=== PATIENT | male | born 1975 | race Caucasian/White ===

== ENCOUNTER 2017-04-05 19:51 | Emergency (ER) | payer OTHER ==
[2017-04-05] MEDS ORDERED: ONDANSETRON 4 MG/2 ML VIAL IVP STA (21:24)
[2017-04-05] MEDS ORDERED: HYDROmorphone 1 MG/ML SYRINGE IVP STA (21:24)
--- NOTE | 2017-04-05 21:33 | ED Physician Documentation ---
PD HPI ABD PAIN - Stated complaint Stated Complaint: RT LOW BACK PX - Chief complaint Chief Complaint: Abd Pain - History obtained from History obtained from: Patient - History of Present Illness Timing - onset: How many days ago (2) Timing - duration: Days (2) Timing - details: Abrupt onset, Intermittant Pain level max: 9 Pain level now: 9 Quality: Aching, Pain Location: Other (R flank) Radiation: Other (R LQ) Improved by: Other (nothing) Worsened by: Other (nothing) Associated symptoms: Melena (x1 today), Hematochezia (x1 yesterday). No: Fever , Nausea, Vomiting, Hematemesis, Diarrhea, Constipation, Near syncope / syncope , Loss of appetite, Weight loss Recently seen: Not recently seen - Additional information Additional information: takes aspirin, meloxicam daily. Takes methotrexate weekly Review of Systems Ten Systems: 10 systems reviewed and negative Constitutional: denies: Fever, Chills Nose: denies: Rhinorrhea / runny nose, Congestion GI: denies: Vomiting, Hematemesis : denies: Dysuria, Frequency, Hesitancy, Testicular pain, Testicular mass Skin: denies: Rash Musculoskeletal: denies: Neck pain Neurologic: denies: Focal weakness, Numbness, Headache PD PAST MEDICAL HISTORY - Past Medical History Past Medical History: Yes Musculoskeletal: Chronic back pain Derm: Other - Present Medications Home Medications: Ambulatory Orders Medication Instructions Recorded Confirmed Aspirin Chewable [St Ray 04/05/17 Aspirin] Cyclobenzaprine [Flexeril] 10 mg PO TID PRN #20 tablet 04/05/17 Hydrocodone/Acetaminophen 1 - 2 each PO Q6H PRN #14 tablet 04/05/17 [Hydrocodon-Acetaminophen 5-325] Lisinopril 20 mg PO 04/05/17 Meloxicam 7.5 mg PO 04/05/17 Methotrexate 04/05/17 Omeprazole [PriLOSEC] 04/05/17 Omeprazole [PriLOSEC] 20 mg PO DAILY #30 capsule 04/05/17 Simvastatin [Zocor] 20 mg PO 04/05/17 traMADol [Ultram] 04/05/17 - Allergies Allergies/Adverse Reactions: Allergies Allergy/AdvReac Type Severity Reaction Status Date / Time amoxicillin Allergy Intermediate Hives Verified 04/05/17 20:05 - Living Situation Living Situation: reports: With family Living Arrangement: reports: At home - Social History Does the pt have substance abuse?: No - Family History Family history: reports: Non contributory PD ED PE NORMAL - Vitals Vital signs reviewed: Yes - General General: Alert and oriented X 3, No acute distress - HEENT HEENT: Moist mucous membranes - Neck Neck: Supple, no meningeal sign, No bony TTP - Cardiac Cardiac: RRR - Respiratory Respiratory: No respiratory distress, Clear bilaterally - Abdomen Abdomen: Soft, Non tender, Non distended - Back Back: No spinal TTP, Other (TTP R low lumbar paraspinal) - Derm Derm: Warm and dry - Neuro Neuro: Alert and oriented X 3 - Psych Psych: Normal mood, Normal affect Results - Vitals Vitals: Vital Signs - 24 hr 04/05/17 04/05/17 04/05/17 20:02 23:40 23:57 Temperature 36.7 C Heart Rate 48 L 53 L 78 Respiratory 18 16 18 Rate Blood Pressure 151/95 H 138/71 H 139/70 H O2 Saturation 97 100 100 Oxygen O2 Source Room air - Labs Labs: Laboratory Tests 04/05/17 04/05/17 04/05/17 21:49 21:49 23:35 WBC 8.2 RBC 4.68 L Hgb 15.0 Hct 43.8 MCV 93.6 MCH 32.1 H MCHC 34.3 RDW 14.0 Plt Count 259 MPV 7.5 Neut # 5.2 Lymph # 2.1 Hill # 0.7 Eos # 0.2 Baso # 0.1 Absolute Nucleated RBC 0.01 Nucleated RBCs 0.1 Sodium 139 Potassium 4.1 Chloride 108 Carbon Dioxide 21 Anion Gap 10.0 BUN 13 Creatinine 1.0 Estimated GFR (MDRD) 82 L Glucose 104 H Calcium 9.4 Total Bilirubin 0.3 AST 21 ALT 27 Alkaline Phosphatase 67 Total Protein 7.3 Albumin 4.5 Globulin 2.8 Albumin/Globulin Ratio 1.6 Lipase 28 Urine Color YELLOW Urine Clarity CLEAR Urine pH 6.0 Ur Specific [place] 1.010 Urine Protein NEGATIVE Urine Glucose (UA) NEGATIVE Urine Ketones NEGATIVE Urine Occult Blood NEGATIVE Urine Nitrite NEGATIVE Urine Bilirubin NEGATIVE Urine Urobilinogen 0.2 (NORMAL) Ur Leukocyte Esterase NEGATIVE Ur Microscopic Review NOT INDICATED Urine Culture Comments NOT INDICATED - Rads (name of study) CT abd/pelvis Radiology: Prelim report reviewed, EMP read contemporaneously, See rad report ( Negative abdomen and pelvis CT. ) PD MEDICAL DECISION MAKING - ED course Complexity details: reviewed results, re-evaluated patient, considered differential, d/w patient ED course: Patient is a 41-year-old male with right lower back pain. Unclear etiology. No acute findings on CT scan or urinalysis. No acute findings on laboratory testing. Rectal is normal and Hemoccult is negative. Will have him stop the aspirin and NSAID use to see if this resolves his GI bleeding. Pain well controlled here. Will trial on Flexeril and hydrocodone at home. Patient counseled regarding signs and symptoms for which I believe and urgent re- evaluation would be necessary. Patient with good understanding of and agreement to plan and is comfortable going home at this time This document was made in part using voice recognition software. While efforts are made to proofread this document, sound alike and grammatical errors may occur. Departure - Departure Disposition: Home, Self Care Clinical Impression: Back pain Qualifiers: Back pain location: low back pain Chronicity: acute Back pain laterality: right Sciatica presence: without sciatica Qualified Code(s): M54.5 - Low back pain GI bleed Qualifiers: GI bleed type/associated pathology: unspecified gastrointestinal hemorrhage type Qualified Code(s): K92.2 - Gastrointestinal hemorrhage, unspecified Condition: Good Instructions: ED Neck Back Pain General, ED Hematochezia Stable Follow-Up: AMBERLY LAM MD [Primary Care Provider] - Within 1 week Prescriptions: Cyclobenzaprine [Flexeril] 10 mg PO TID PRN #20 tablet PRN Reason: Spasms Hydrocodone/Acetaminophen [Hydrocodon-Acetaminophen 5-325] 1 - 2 each PO Q6H PRN #14 tablet PRN Reason: pain Omeprazole [PriLOSEC] 20 mg PO DAILY #30 capsule Comments: Stop the anti-inflammatory medications at home and aspirin. Return if you worsen. Do not take the flexeril with the tramadol. Do not drink alcohol or drive while on narcotic pain medicine. Note that many narcotic pain relievers also contain tylenol/acetaminophen. Please ensure that your total dose of acetaminophen from all sources does not exceed 3 grams (3000mg) per day. You may constipated on this medication, take a stool softener such as "Colace" twice a day while you are on it. Also recommend a dbit-[id number] laxative such as senna or MiraLAX any day that you do not have a bowel movement. If you received narcotic pain medication in the emergency department, do not drive or operate machinery for the next 24 hours. Discharge Date/Time: 04/05/17 23:59
[2017-04-05] MEDS ORDERED: ONDANSETRON 4 MG/2 ML VIAL ONE (21:43)
[2017-04-05] MEDS ORDERED: HYDROmorphone 1 MG/ML SYRINGE ONE (21:43)
[2017-04-05 21:59] LABS: BASOPHILS # (AUTO) 0.1 10^3/uL (0.0-0.1); EOSINOPHILS # (AUTO) 0.2 10^3/uL (0.0-0.7); HCT - HEMATOCRIT 43.8 % (42.0-52.0); LYMPHOCYTES # (AUTO) 2.1 10^3/uL (1.5-3.5); LYMPHOCYTES % (AUTO) 26.1 %; MEAN CORPUSCULAR HEMOGLOBIN 32.1 pg (27.0-31.0); MEAN CORPUSCULAR HGB CONC 34.3 g/dL (32.0-36.0); MEAN CORPUSCULAR VOLUME 93.6 fL (80.0-94.0); MEAN PLATELET VOLUME 7.5 fL (7.4-11.4); MONOCYTES # (AUTO) 0.7 10^3/uL (0.0-1.0); NEUTROPHILS # (AUTO) 5.2 10^3/uL (1.5-6.6); NEUTROPHILS % (AUTO) 62.9 %; NUCLEATED RED BLOOD CELLS AUTO 0.1 /100WBC; RED BLOOD COUNT 4.68 10^6/uL (4.70-6.10); UNCORRECTED WHITE BLOOD COUNT 8.2 x10^3/uL; WHITE BLOOD COUNT 8.2 x10^3/uL (4.8-10.8)
[2017-04-05 22:10] LABS: ALBUMIN/GLOBULIN RATIO 1.6 (1.0-2.2); BILIRUBIN,TOTAL 0.3 mg/dL (0.2-1.0); CALCIUM 9.4 mg/dL (8.5-10.3); POTASSIUM 4.1 mmol/L (3.5-5.0); TOTAL PROTEIN 7.3 g/dL (6.7-8.2)
[2017-04-05] MEDS ORDERED: IOPAMIDOL-300 100 ML VIAL IVP ONE (23:04)
--- NOTE | 2017-04-05 23:24 | CT Preliminary Report ---
Exam: CT Abdomen/Pelvis W/ IMPRESSION: Negative abdomen and pelvis CT. [facility] SITE ID: [id number]
--- NOTE | 2017-04-05 23:29 | CT Report ---
EXAM: CT ABDOMEN AND PELVIS EXAM DATE: 04/05/2017 11:09 PM. CLINICAL HISTORY: Abdominal pain on the right. COMPARISONS: None. TECHNIQUE: Routine helical CT imaging was performed through the abdomen and pelvis. IV contrast: 100 mL Isovue-300. Enteric contrast: No . Reconstructions: Coronal and sagittal. In accordance with CT protocol optimization, one or more of the following dose reduction techniques w ere utilized for this exam: automated exposure control, adjustment of mA and/or KV based on patient s ize, or use of iterative reconstructive technique. FINDINGS: Lung Bases: Unremarkable. Liver: Small left liver hypodense focus is statistically benign. No suspicious masses. Gallbladder/Bile Ducts: Unremarkable. Spleen: Unremarkable. Pancreas: Unremarkable. Adrenal Glands: Unremarkable. Kidneys: Unremarkable. No suspicious masses or hydronephrosis. Peritoneal Cavity/Bowel: No bowel obstruction or inflammatory process seen. No free air or significan t free fluid. No masses or adenopathy. The appendix is normal. No excessive stool burden. Pelvic Organs: Bladder and prostate appear unremarkable. Vasculature: No aneurysms or other significant abnormality. Bones: No significant abnormality. Other: None. IMPRESSION: Negative abdomen and pelvis CT. [facility] Referring Provider Line: [phone] SITE ID: [id number]
[2017-04-05 23:43] LABS: BILIRUBIN,URINE NEGATIVE (NEGATIVE)
[2017-04-05 23:45] LABS: UA CHARGE (STRIP ONLY) YES; UR CULTURE IF IND NOT INDICATED
[2017-04-05] MEDS ORDERED: HYDROcod/ACETAM 5/325 MG TABLET PO STA (23:52)
[2017-04-05] MEDS ORDERED: CYCLOBENZAPRINE 10 MG TABLET PO STA (23:52)
[2017-04-05] MEDS ORDERED: CYCLOBENZAPRINE 10 MG TABLET PO ONE (23:57)
[2017-04-05] MEDS ORDERED: HYDROcod/ACETAM 5/325 MG TABLET ONE (23:58)
[2017-04-05 23:59] VITALS: BP 139/70
== END 2017-04-05 23:59 | disposition home or self-care (01) ==
LOC: ED 19:51
DX: K92.2 Gastrointestinal hemorrhage, unspecified (principal); M54.5 Low back pain
CPT/HCPCS: 36415; 74177; 80053; 81003; 83690; 85025; 96374; 96375; 99283; A9270; J1170; Q9967; 81001; 87086

== ENCOUNTER 2017-05-06 08:59 | Day surgery (SDC) | payer OTHER ==
[2017-05-06] MEDS ORDERED: CELECOXIB 100 MG CAPSULE PO ONE (09:18)
[2017-05-06] MEDS ORDERED: ACETAMINOPHEN 1,000 MG/100 ML 100 ML IV ONE (09:18)
[2017-05-06] MEDS ORDERED: CLINDAMYCIN 600 MG/50 ML 50 ML IV ONE (09:18)
[2017-05-06] MEDS ORDERED: LACTATED RINGERS 1,000 ML IV ONE ×3 (09:27→16:22)
[2017-05-06] MEDS ORDERED: EPINEPHrine 1 MG/1 ML 30 ML MDV IV ONE (12:14)
[2017-05-06] MEDS ORDERED: BUPIVACAINE 0.25% PF 30 ML VIAL SUBQ ONE (13:09)
[2017-05-06] MEDS ORDERED: ROCURONIUM 50 MG/5 ML VIAL IVP ONE (15:30)
[2017-05-06] MEDS ORDERED: SUCCINYLCHOLINE 200 MG/10 ML VIAL IVP ONE (15:30)
[2017-05-06] MEDS ORDERED: NEOSTIGMINE 1 MG/1 ML 10 ML MDV IVP ONE (15:30)
[2017-05-06] MEDS ORDERED: fentaNYL 100 MCG/2 ML VIAL IVP ONE (15:30)
[2017-05-06] MEDS ORDERED: LIDOCAINE-MPF 2% 5 ML VIAL IM ONE (15:30)
[2017-05-06] MEDS ORDERED: GLYCOPYRROLATE 1 MG/5 ML VIAL IVP ONE (15:30)
[2017-05-06] MEDS ORDERED: MIDAZOLAM 2 MG/2 ML VIAL IVP ONE (15:30)
[2017-05-06] MEDS ORDERED: ONDANSETRON 4 MG/2 ML VIAL IVP ONE (15:30)
[2017-05-06] MEDS ORDERED: ROPIVACAINE 0.5% PF 20 ML AMPULE EP ONE (15:30)
[2017-05-06] MEDS ORDERED: DEXAMETHASONE 4 MG/ML VIAL IVP ONE (15:30)
[2017-05-06] MEDS ORDERED: PROPOFOL 200 MG/20 ML VIAL IVP ONE (15:30)
[2017-05-06] MEDS ORDERED: ONDANSETRON 4 MG/2 ML VIAL ONE (15:46)
[2017-05-06] MEDS: fentaNYL 100 MCG/2 ML VIAL ONE ×2 (16:03→16:15)
[2017-05-06 18:06] VITALS: BP 136/78
--- NOTE | 2017-05-07 08:35 | OPERATIVE REPORT ---
DATE OF SURGERY: 05/06/2017 00:00:[address] [facility] . PREOPERATIVE DIAGNOSES 1. Left shoulder superior labral tear from anterior to posterior (SLAP) tear. 2. Left shoulder subacromial impingement. 3. Left shoulder biceps tendinopathy. 4. Left shoulder symptomatic implants. POSTOPERATIVE DIAGNOSES 1. Left shoulder superior labrum tear from anterior and posterior (SLAP) tear. 2. Left shoulder subacromial impingement. 3. Left shoulder biceps tendinopathy. 4. Left shoulder symptomatic implants. OPERATION PERFORMED 1. Left shoulder arthroscopy with labral debridement. 2. Left shoulder arthroscopy with subacromial decompression. 3. Left shoulder open biceps tenotomy. 4. Left shoulder removal of implants. SURGEON: Sobeida Rodriguez MD. GAS MAKER HELPER SURGEON: Olu Rodriguez MD. ANESTHESIA PROVIDER: Yohana Ty CRNA. CIRCULATING NURSES 1. Shalini Long RN. 2. Ana M Samano RN. 3. Katie Page RN CNOR. SCRUB TECHS 1. Yareli Wisdom CST. 2. Vivian Parada RN, BSN. ANESTHESIA 1. General via endotracheal tube. 2. Interscalene block. INTRAVENOUS FLUIDS: 900 mL lactated Ringer's. ESTIMATED BLOOD LOSS: 5 mL. ANTIBIOTICS: Clindamycin 600 mg IV. TOURNIQUET: None. IMPLANTS: None. SPECIMENS: None. COMPLICATIONS: None. INDICATIONS FOR SURGERY: This is a 41-year-old male who underwent a left shoulder arthroscopy with superior labrum anterior and posterior debridement and open biceps tenodesis on 03/14/2014. He initially had good relief of his shoulder symptoms; however, consequently began to have left shoulder pain that was primarily posterior superior, as well as some pain in the region of the biceps tenodesis. Treatment options were discussed with the patient to include risks, benefits, indications, and expectations. Risks of surgery to include, but not limited to infection, bleeding, damage to neurovascular structures, need for additional surgery, cosmetic defect, persistent or worsened pain, recurrent labral tears, decreased range of motion or stiffness, iatrogenic chondromalacia, iatrogenic fracture, deep vein thrombosis, pulmonary embolism, loss of limb and loss of life were discussed with the patient. All questions were answered, the patient elected to proceed with surgery, and informed consent was obtained. DESCRIPTION OF PROCEDURE: The patient was met in the preoperative hold area on the day of surgery, where we confirmed that we had the correct patient, planned to do the correct procedure, and had the correct extremity, which was the left upper extremity identified. Prior to the patient receiving any medications, the operative extremity was initialed by the surgeon. The patient then under light sedation had a left interscalene block performed by Anesthesia. The patient was then brought back to the operating room in stable condition and placed supine on the operating room table. All bony prominences were well-padded, and sequential compression devices were placed on the bilateral lower extremities. General anesthesia was then induced, and an endotracheal tube was placed. The patient was then placed into a beach chair position, ensuring that we maintained anatomic position and all bony prominences remained well-padded. We then did an examination under anesthesia of his left shoulder that showed supple range of motion with forward flexion of 180 degrees, abduction of 180 degrees, abducted external rotation of 95 degrees, internal rotation of 75, and adducted external rotation of 65 degrees. He had a negative posterior load and anterior load shift test, as well as negative sulcus. Left lower extremity was then prepped and draped in the usual sterile fashion. After final draping, additional ChloraPrep was utilized on the operative site. Three minutes were allowed to elapse and enable the ChloraPrep to dry. We held a surgical time-out, where we confirmed that we had the correct patient, planned to do the correct procedure, had the correct extremity, which was the left upper extremity identified. We also confirmed that the patient received preoperative antibiotics and that all necessary gear was in the room and confirmed sterile, and that no members of the operative team had any concerns. We then began by making a standard posterior portal incision after sharply incising the skin with #11 blade and then introducing a blunt trocar into the glenohumeral joint. We then introduced the camera and began our diagnostic exam. Immediately on entering, a significant amount of synovitis in the anterior capsule, as well as superiorly was noted. The superior labrum at the 12 -o'clock position and extending slightly anteriorly and posteriorly was frayed consistent with a type 1 SLAP tear. There was noted absence of the biceps tendon intra-articularly, though there was scar tissue anteriorly in the region of the rotator interval. We established an anterior portal in the rotator interval under direct visualization. The remainder of the exam showed the labrum to be intact posteriorly, inferiorly, and anteriorly. The rotator cuff was intact, although there was significant injection about the cuff. There was chondromalacia on the humeral head. There were no significant cartilage lesions of the glenoid. We then introduced a sucker shaver and debrided the SLAP region of the shoulder , as well as some of the synovitic tissue. After completing this debridement, we then removed all arthroscopic equipment from intraarticularly and then through the posterior incision, placed the trocar into the subacromial space. We then established a lateral portal midway along the acromion by first localizing with a spinal needle, and then making an incision and passing the switching stick into the subacromial space. We then dilated over this and placed a 5 mm cannula. We then alternated between introducing a sucker shaver and the SERFAS wand to debride the subacromial space. We used the SERFAS wand to remove the bursa from the inferior aspect of the acromion. We ensured that we debrided all the way anteriorly to the anterior corner of the acromion and medially to the acromioclavicular joint. We also debrided in the subdeltoid region. The rotator cuff was noted to be grossly intact. After completing the subacromial decompression, we removed all arthroscopic equipment. We then turned our attention to the prior biceps tenodesis site. We made a new incision in line with the arm in the medial aspect overlying the biceps groove. We first sharply incised the skin, then utilized electrocautery to maintain hemostasis, dissecting into the subcuticular layer. We then incised the fascia overlying the musculature utilizing tenotomies and then bluntly dissect to the bicipital groove. In the bicipital groove, we localized the tenodesed biceps tendon. The biceps tendon was significantly scarred to the pectoralis muscle overlying it. We debrided these adhesions and then performed a tenotomy of the biceps tendon below the suture from the prior tenodesis. We then localized the tenodesis screw in the humerus, which was partially overgrown with bone, as well as the remaining portion of the biceps tendon that was attached to the screw. Utilizing a rongeur we debrided the remaining tendon stump and suture. We then thoroughly irrigated the wounds. We then closed the subcuticular layer of all incisions utilizing 2-0 Vicryl in interrupted fashion. We then closed the skin in the bicipital groove incision utilizing 3-0 Monocryl in a running buried fashion. The portal incisions were then closed utilizing 3-0 Monocryl in a buried fashion. We then placed Mastisol and Steri-Strips over all of these incisions. We then injected 10 mL of 0.25% Marcaine without epinephrine about the bicipital tenodesis incision. We then dressed all wounds with sterile Xeroform, plain gauze, and an abdominal pad. We then placed MediPort tape over this. All sponge counts and needle counts were correct at the conclusion of the case. The patient was awakened from general anesthesia without complication and taken to the PACU in stable condition. POSTOPERATIVE PLAN: The patient will remain in a sling until I see him back in 10-14 days for a wound check, at which time we will initiate physical therapy for range of motion and strengthening. Report edited and signed 05/08/2017 by Sobeida Rodriguez MD. JOB #: [id number] EXT JOB #:[id number] ESTEBAN
== END 2017-05-06 09:00 | disposition home or self-care (01) ==
LOC: SDS 08:59
PROVIDERS: ATTEND Orthopaedic Surgery
PROC: 0RNK4ZZ Release Left Shoulder Joint, Percutaneous Endoscopic Approach (ICD-10-PCS; 2017-05-06)
PROC: 0RPK04Z Removal of Internal Fixation Device from Left Shoulder Joint, Open Approach (ICD-10-PCS; 2017-05-06)
PROC: 0L820ZZ Division of Left Shoulder Tendon, Open Approach (ICD-10-PCS; 2017-05-06)
PROC: 0RBK4ZZ Excision of Left Shoulder Joint, Percutaneous Endoscopic Approach (ICD-10-PCS; principal; 2017-05-06 11:45)
DX: S43.432A Superior glenoid labrum lesion of left shoulder, initial encounter (principal); M75.42 Impingement syndrome of left shoulder; M75.22 Bicipital tendinitis, left shoulder; T84.84XA Pain due to internal orthopedic prosthetic devices, implants and grafts, initial encounter; I10 Essential (primary) hypertension; E78.5 Hyperlipidemia, unspecified
CPT/HCPCS: 20680; 23405; 29822; 29826; A9270; J0131; J7120